=== PATIENT | female | born 1990 | race Caucasian/White ===

== ENCOUNTER 2025-02-27 08:31 | Outpatient (CLI) | payer BC | END 2025-02-27 08:32 | disposition home or self-care (01) | LOC: CSHULT 08:31 | PROVIDERS: ATTEND Nurse Practitioner Family | DX: K42.9 Umbilical hernia without obstruction or gangrene (principal); K76.0 Fatty (change of) liver, not elsewhere classified | CPT/HCPCS: 76700 ==